=== PATIENT | male | born 1965 | race Caucasian/White ===

== ENCOUNTER 2020-08-02 08:26 | Outpatient (CLI) | payer OTHER ==
[2020-08-02 16:32] LABS: Hemoglobin 15.6 g/dL (14.0-18.0); Mean Corpuscular HGB CONC 34.5 g/dL (32.0-36.0); Mean Corpuscular Hemoglobin 33.6 pg (27.0-31.0); Mean Corpuscular Volume 97.4 fL (78.0-98.0); Mean Platelet Volume 9.3 fL (7.4-10.4); Platelet Count 230 thou/uL (130-400); RBC Distribution Width 11.6 % (11.5-14.5); Red Blood Cell (RBC) Count 4.63 mill/uL (4.70-6.10); White Blood Cell (WBC) Count 7.7 thou/uL (4.8-10.8)
[2020-08-02 17:40] LABS: Anion Gap 16 mmol/L (10-20); BUN (Urea Nitrogen) 17 mg/dL (8.4-25.7); Calc. Creatinine Clearance 0 mL/min (70-130); Calcium 9.6 mg/dL (7.8-10.44); Carbon Dioxide 26 mmol/L (22-29); Chloride 105 mmol/L (98-107); Estimated GFR-MDRD 51; Glucose 99 mg/dL (70-105); Potassium 4.2 mmol/L (3.5-5.1); Sodium 143 mmol/L (136-145)
[2020-08-03 12:32] LABS: SARS-CoV-2 MS2 Positive; SARS-CoV-2 N Gene Negative; SARS-CoV-2 S Gene Negative; SARS-CoV-2 by NAA Not Detected (NotDetected); SARS-CoV-2 orf1ab Negative
== END 2020-08-02 08:27 | disposition home or self-care (01) ==
LOC: LABBT 08:26
PROVIDERS: ATTEND Neurological Surgery
DX: Z01.818 Encounter for other preprocedural examination (principal); M48.062 Spinal stenosis, lumbar region with neurogenic claudication; Z20.828 Contact with and (suspected) exposure to other viral communicable diseases
CPT/HCPCS: 80048; 85027; 87635; 93005; 93010; U0003

== ENCOUNTER 2020-08-06 07:18 | Observation (INO) | payer OTHER ==
[2020-08-02 15:08] VITALS: BMI 29.4
[2020-08-06] MEDS ORDERED: Fentanyl 100 MCG/2 ML VIAL ONE ×4 (10:12→13:52)
[2020-08-06] MEDS ORDERED: HYDROmorphone 2 MG/ML VIAL ONE (10:12)
[2020-08-06] MEDS ORDERED: Morphine 4 MG/ML VIAL ONE (10:14)
[2020-08-06] MEDS ORDERED: SUGAMMADEX SODIUM 200 MG/2 ML VIAL ONE (10:22)
[2020-08-06] MEDS ORDERED: Ondansetron HCl/PF 4 MG/2 ML Vial IVP PRN (11:15)
[2020-08-06] MEDS ORDERED: Meperidine HCl/PF 25 MG/ML VIAL SLOW IVP PRN (11:15)
[2020-08-06] MEDS ORDERED: HYDROmorphone 2 MG/ML VIAL SLOW IVP PRN (11:15)
--- NOTE | 2020-08-06 12:30 | OP ---
DATE OF PROCEDURE: 08/06/2020 BLINDSTITCH HEMMER: Selena Galvan PA-C PROCEDURE PERFORMED: L2 through L5 laminectomy. DESCRIPTION OF PROCEDURE: The patient was brought to the operating room and intubated. He was rolled in a prone position on gel-filled chest rolls. An incision was made exposing L2 through L5 and the level was confirmed by x-ray. We performed complete L5, complete L4, complete L3, and inferior L2 laminectomies, completely decompressing the neural elements. The wound was then extensively irrigated and MAC hemostasis was secured. Vancomycin powder was applied and the wound was then closed in anatomic layers. Job ID: [id number]
[2020-08-06] MEDS ORDERED: HYDROmorphone 0.5 MG/0.5 ML SYRINGE ONE ×3 (13:06→13:24)
[2020-08-06] MEDS ORDERED: Tamsulosin HCl 0.4 MG CAP ONE (13:23)
[2020-08-06] MEDS ORDERED: Lidocaine 1% PF 5 ML VIAL ONE (13:24)
[2020-08-06] MEDS ORDERED: Glycopyrrolate 0.2 MG/ML 5 ML SYRINGE ONE (13:24)
[2020-08-06] MEDS ORDERED: PROPOFOL 200 MG/20 ML VIAL ONE (13:24)
[2020-08-06] MEDS ORDERED: Dexamethasone 20 MG/5 ML VIAL ONE (13:24)
[2020-08-06] MEDS ORDERED: Ondansetron PF 4 MG/2 ML Vial ONE (13:24)
[2020-08-06] MEDS ORDERED: Rocuronium Bromide 10 MG/ML (10ML VIAL) ONE (13:24)
[2020-08-06] MEDS ORDERED: Ketorolac Tromethamine 30 MG/ML VIAL ONE (13:24)
[2020-08-06] MEDS ORDERED: Ondansetron PF 4 MG/2 ML Vial IM PRN (15:19)
[2020-08-06] MEDS ORDERED: Prochlorperazine 10 MG/2 ML VIAL IM PRN (15:30)
[2020-08-06] MEDS ORDERED: Acetaminophen/Codeine 30-300mg Tablet PO PRN (15:30)
[2020-08-06] MEDS ORDERED: Promethazine 25 MG TAB PO PRN (15:30)
[2020-08-06] MEDS ORDERED: traMADol HCl 50 MG TAB PO PRN (15:30)
[2020-08-06] MEDS ORDERED: Promethazine HCl 12.5 MG SUPP PR PRN (15:30)
[2020-08-06] MEDS ORDERED: diphenhydrAMINE 50 MG/ML VIAL IVP PRN (15:30)
[2020-08-06] MEDS ORDERED: tiZANidine HCl 4 MG TAB PO PRN (15:30)
[2020-08-06] MEDS ORDERED: Morphine 2 MG/ML VIAL SLOW IVP PRN (15:30)
[2020-08-06] MEDS ORDERED: Gabapentin 300 MG CAP PO SCH (15:30)
[2020-08-06] MEDS ORDERED: Milk Of Magnesia 30 ML UDCUP PO PRN (15:30)
[2020-08-06] MEDS ORDERED: Promethazine HCl 25 MG/ML VIAL IM PRN (15:30)
[2020-08-06] MEDS ORDERED: diphenhydrAMINE 25 MG CAP PO PRN (15:30)
[2020-08-06] MEDS ORDERED: Mag-Al 1200 mg/1200 mg/30 ML UDCUP PO PRN (15:30)
[2020-08-06] MEDS: Sodium Chloride 0.9% 1,000 ML IV SCH (15:58)
[2020-08-06] MEDS: Acetaminophen/Codeine 30-300mg Tablet PO PRN ×2 (15:59→20:29)
[2020-08-06] MEDS: CEFAZOLIN 2 GM in Premix Bag 1 BAG IVPB SCH (18:29)
[2020-08-06] MEDS: Morphine 4 MG/ML VIAL SLOW IVP PRN ×3 (18:33→23:54)
[2020-08-06] MEDS: Gabapentin 300 MG CAP PO SCH (20:28)
[2020-08-06] MEDS: CeleCOXIB 100 MG CAP PO SCH (20:28)
[2020-08-06] MEDS: Pramipexole Di-HCl 1 MG TAB PO SCH (20:28)
[2020-08-06] MEDS: Baclofen 10 MG TAB PO PRN (23:53)
[2020-08-06] MEDS: traMADol HCl 50 MG TAB PO PRN (23:53)
[2020-08-07] MEDS: CEFAZOLIN 2 GM in Premix Bag 1 BAG IVPB SCH ×3 (02:46→17:29)
[2020-08-07] MEDS: Tamsulosin HCl 0.4 MG CAP PO SCH (05:34)
[2020-08-07] MEDS: Morphine 4 MG/ML VIAL SLOW IVP PRN ×6 (05:35→23:44)
[2020-08-07] MEDS: Acetaminophen/Codeine 30-300mg Tablet PO PRN ×3 (05:35→18:19)
[2020-08-07] MEDS: Sodium Chloride 0.9% 1,000 ML IV SCH ×2 (06:36→18:38)
--- NOTE | 2020-08-07 06:41 | PRG ---
DATE OF SERVICE: 08/07/2020 SUBJECTIVE: Mr. De Santiago is doing quite well on postoperative day #1. He feels his legs are much improved. He has expected amount of postsurgical back pain. The drain output has been approximately 160 mL in the last shift. IMPRESSION AND PLAN: Excellent progress. We will continue to drain overnight and anticipate discharge tomorrow. Job ID: [id number]
[2020-08-07] MEDS: CeleCOXIB 100 MG CAP PO SCH ×2 (08:30→20:53)
[2020-08-07] MEDS: Gabapentin 300 MG CAP PO SCH ×3 (08:31→20:54)
[2020-08-07] MEDS: Pramipexole Di-HCl 1 MG TAB PO SCH (20:53)
[2020-08-08] MEDS: CEFAZOLIN 2 GM in Premix Bag 1 BAG IVPB SCH ×2 (01:30→09:07)
[2020-08-08] MEDS: Tamsulosin HCl 0.4 MG CAP PO SCH (05:02)
[2020-08-08] MEDS: traMADol HCl 50 MG TAB PO PRN (05:02)
[2020-08-08] MEDS: Morphine 4 MG/ML VIAL SLOW IVP PRN (06:37)
[2020-08-08] MEDS: Sodium Chloride 0.9% 1,000 ML IV SCH (07:40)
[2020-08-08] MEDS: Acetaminophen/Codeine 30-300mg Tablet PO PRN ×2 (08:16→11:22)
[2020-08-08] MEDS: CeleCOXIB 100 MG CAP PO SCH (08:17)
[2020-08-08] MEDS: Gabapentin 300 MG CAP PO SCH (08:17)
[2020-08-08 08:23] VITALS: BP 122/61; TEMP 98.6
[2020-08-08] MEDS: Baclofen 10 MG TAB PO PRN (09:09)
--- NOTE | 2020-08-12 21:22 | DIS ---
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 He underwent an L2-L5 laminectomy on 08/06/2020. Following the surgery, he was transitioned to the Med/Surg floor, where his pain was well controlled with p.o. medications, he was tolerating regular diet, and he is voiding appropriately. His ESTEBAN output trended down and was removed on postoperative day #2. He was also dismissed to home at this time. Dr. Del Rosario discussed home care and will follow up in 2 weeks. MEDICAL TECHNOLOGIST PRN AWARxE checked prior to discharge. The patient provided with scripts for Tylenol No. 3 and Zanaflex. Job ID: [id number]
== END 2020-08-08 12:05 | disposition home or self-care (01) ==
LOC: SDC 07:18 → SURG A 14:29
PROVIDERS: ADMIT Neurological Surgery; ATTEND Neurological Surgery
PROC: 01NB0ZZ Release Lumbar Nerve, Open Approach (ICD-10-PCS; principal; 2020-08-08)
DX: M48.062 Spinal stenosis, lumbar region with neurogenic claudication (principal); F41.9 Anxiety disorder, unspecified; F32.9 Major depressive disorder, single episode, unspecified; K58.9 Irritable bowel syndrome, unspecified; Z79.899 Other long term (current) drug therapy
CPT/HCPCS: 76000; 96361; 96365; 96372; 96375; 96376; G0378; J0690; J1100; J1170; J1885; J2270; J2405; J2704; J3010; J3370